=== PATIENT | female | born 1985 | race Caucasian/White ===

== ENCOUNTER 2018-01-24 09:50 | Inpatient (IN) | payer MEDICAID ==
[2018-01-24 10:40] LABS: ADD UMIC YES; UR ASCORBIC ACID NEGATIVE (NEGATIVE); UR BACTERIA FEW /HPF (NONE SEEN); UR BILIRUBIN (Dip) NEGATIVE (NEGATIVE); UR BLOOD (Dip) 1+ mg/dL (NEGATIVE); UR CLARITY SLIGHTLY CLOUDY (CLEAR); UR COLOR YELLOW (YELLOW); UR GLUCOSE (Dip) NEGATIVE (NEGATIVE); UR KETONES (Dip) 1+ mg/dL (NEGATIVE); UR LEUKOCYTE ESTERASE (Dip) 2+ Leu/ul (NEGATIVE); UR MUCUS FEW /HPF (NONE SEEN); UR NITRITE (Dip) NEGATIVE (NEGATIVE); UR RBC 14 /HPF (0-5); UR SPECIFIC GRAVITY (Dip) 1.015 (1.003-1.030); UR SQUAMOUS EPITHELIAL CELL FEW /HPF (FEW); UR TOTAL PROTEIN (Dip) NEGATIVE (NEGATIVE); UR UROBILINOGEN (Dip) NEGATIVE (NEGATIVE); UR WBC 37 /HPF (0-5)
[2018-01-24] MEDS: ONDANSETRON 4 MG INJ IV ×2 (11:58→18:09)
[2018-01-24] MEDS: LACTATED RINGER'S 1,000 ML IV ×2 (11:58→21:17)
[2018-01-24] MEDS: HYDROCODONE/APAP (5/325) TAB PO ×3 (11:58→23:17)
[2018-01-24] MEDS: CEFAZOLIN 1 GM/50 ML (PMX) 50 ML IVPB ×2 (12:29→21:17)
[2018-01-24 12:43] LABS: ADD MAN DIFF? NO
[2018-01-24 12:45] LABS: WHITE BLOOD COUNT 13.9 10^3/ul (4.8-10.8)
[2018-01-24 12:45] LABS: ABNORMAL IP MESSAGE 1; BASOPHILS % 0.1 % (0.0-2.0); HEMATOCRIT 33.8 % (37.0-47.0); HEMOGLOBIN 11.4 g/dl (12.0-16.0); LYMPHOCYTES # 0.5 10^3/ul (0.8-2.9); LYMPHOCYTES % 3.8 % (15.0-51.0); MEAN CORPUSCULAR HEMOGLOBIN 28.6 pg (29.0-33.0); MEAN CORPUSCULAR HGB CONC 33.7 g/dl (32.0-37.0); MEAN CORPUSCULAR VOLUME 84.7 fl (82.0-101.0); MEAN PLATELET VOLUME 11.8 fl (7.4-10.4); MONOCYTE # 0.6 10^3/ul (0.3-0.9); MONOCYTES % 4.3 % (0.0-11.0); NEUTROPHIL # 12.7 10^3/ul (1.6-7.5); NEUTROPHILS % 91.4 % (39.0-77.0); PLATELET COUNT 186 10^3/UL (140-415); RED BLOOD COUNT 3.99 10^6/ul (4.20-5.40); RED CELL DISTRIBUTION WIDTH 13.3 % (11.5-14.5)
[2018-01-24 12:50] LABS: POSITIVE DIFF @See below
[2018-01-24] MEDS ORDERED: CEFAZOLIN 1 GM/50 ML (PMX) 50 ML IV ×2 (14:00)
[2018-01-24] MEDS ORDERED: FAMOTIDINE 20 MG INJ IV (14:30)
[2018-01-24] MEDS: AL HYDROX/MG HYDROX/SIMETH 30 ML CUP PO (15:14)
[2018-01-24] MEDS: LACTATED RINGER'S 500 ML IV (15:27)
[2018-01-24] MEDS: ACETAMINOPHEN 325 MG TAB PO (15:37)
[2018-01-24] MEDS: FAMOTIDINE 20 MG INJ IV (21:17)
[2018-01-25] MEDS: LACTATED RINGER'S 1,000 ML IV ×4 (03:40→20:59)
[2018-01-25] MEDS: CEFAZOLIN 1 GM/50 ML (PMX) 50 ML IVPB ×3 (04:11→20:59)
[2018-01-25] MEDS: FAMOTIDINE 20 MG INJ IV ×2 (09:13→21:38)
[2018-01-25] MEDS: PRENATAL VITAMIN PO (09:13)
[2018-01-25] MEDS: ONDANSETRON 4 MG INJ IV (09:20)
[2018-01-25] MEDS: HYDROCODONE/APAP (5/325) TAB PO (09:23)
[2018-01-25] MEDS ORDERED: FLUCONAZOLE 100 MG TAB PO (22:30)
[2018-01-25] MEDS: ZINC OXIDE 13% (DESITIN) CREAM 2 OZ TUBE TOP (23:25)
[2018-01-25 23:31] LABS: ADD UMIC YES; UR ASCORBIC ACID NEGATIVE (NEGATIVE); UR BACTERIA FEW /HPF (NONE SEEN); UR BILIRUBIN (Dip) NEGATIVE (NEGATIVE); UR BLOOD (Dip) 1+ mg/dL (NEGATIVE); UR CLARITY CLEAR (CLEAR); UR COLOR YELLOW (YELLOW); UR GLUCOSE (Dip) NEGATIVE (NEGATIVE); UR KETONES (Dip) NEGATIVE (NEGATIVE); UR LEUKOCYTE ESTERASE (Dip) 3+ Leu/ul (NEGATIVE); UR NITRITE (Dip) NEGATIVE (NEGATIVE); UR RBC 4 /HPF (0-5); UR SQUAMOUS EPITHELIAL CELL FEW /HPF (FEW); UR TOTAL PROTEIN (Dip) NEGATIVE (NEGATIVE); UR UROBILINOGEN (Dip) NEGATIVE (NEGATIVE); UR WBC 13 /HPF (0-5)
[2018-01-26] MEDS: FLUCONAZOLE 150 MG TAB PO (04:20)
[2018-01-26] MEDS: LACTATED RINGER'S 1,000 ML IV ×3 (04:22→18:02)
[2018-01-26] MEDS: CEFAZOLIN 1 GM/50 ML (PMX) 50 ML IVPB ×3 (04:22→20:30)
[2018-01-26] MEDS: HYDROCODONE/APAP (5/325) TAB PO (04:27)
[2018-01-26] MEDS: AL HYDROX/MG HYDROX/SIMETH 30 ML CUP PO ×2 (05:25→15:02)
[2018-01-26] MEDS: ONDANSETRON 4 MG INJ IV ×2 (05:26→09:29)
[2018-01-26] MEDS: morphine 2 MG INJ IV (06:46)
[2018-01-26] MEDS: PRENATAL VITAMIN PO (09:24)
[2018-01-26] MEDS: FAMOTIDINE 20 MG INJ IV ×2 (09:24→21:07)
[2018-01-26] MEDS ORDERED: HYDROmorphONE 2 MG TAB PO (10:00)
[2018-01-26] MEDS: ACETAMINOPHEN 325 MG TAB PO ×2 (10:40→16:03)
[2018-01-26] MEDS: HYDROmorphONE 2 MG/ML SYG IV (11:07)
[2018-01-26] MEDS: METOCLOPRAMIDE 10 MG INJ IV (13:03)
[2018-01-26] MEDS: CEFAZOLIN 2 GM/50 ML (PMX) 50 ML IVPB ×2 (13:03→21:11)
[2018-01-26] MEDS: MAGNESIUM HYDROXIDE 30ML CUP PO (19:00)
[2018-01-27] MEDS: LACTATED RINGER'S 1,000 ML IV ×3 (01:41→18:28)
[2018-01-27] MEDS: CEFAZOLIN 1 GM/50 ML (PMX) 50 ML IVPB (03:34)
[2018-01-27] MEDS: CEFAZOLIN 2 GM/50 ML (PMX) 50 ML IVPB ×3 (04:39→20:58)
[2018-01-27] MEDS: HYDROCODONE/APAP (5/325) TAB PO ×2 (04:46→23:16)
[2018-01-27] MEDS: METOCLOPRAMIDE 10 MG INJ IV ×2 (05:30→18:30)
[2018-01-27] MEDS ORDERED: HYDROmorphONE 0.5 MG/0.5 ML SYG IV (06:37)
[2018-01-27 06:43] LABS: ADD UMIC YES; UR ASCORBIC ACID NEGATIVE (NEGATIVE); UR BACTERIA FEW /HPF (NONE SEEN); UR BILIRUBIN (Dip) NEGATIVE (NEGATIVE); UR BLOOD (Dip) 2+ mg/dL (NEGATIVE); UR CLARITY CLEAR (CLEAR); UR COLOR YELLOW (YELLOW); UR GLUCOSE (Dip) NEGATIVE (NEGATIVE); UR KETONES (Dip) NEGATIVE (NEGATIVE); UR LEUKOCYTE ESTERASE (Dip) 3+ Leu/ul (NEGATIVE); UR NITRITE (Dip) NEGATIVE (NEGATIVE); UR RBC 2 /HPF (0-5); UR SPECIFIC GRAVITY (Dip) 1.005 (1.003-1.030); UR SQUAMOUS EPITHELIAL CELL FEW /HPF (FEW); UR TOTAL PROTEIN (Dip) NEGATIVE (NEGATIVE); UR UROBILINOGEN (Dip) NEGATIVE (NEGATIVE); UR WBC 32 /HPF (0-5)
[2018-01-27] MEDS: HYDROmorphONE 2 MG/ML SYG IV (07:01)
[2018-01-27] MEDS: FAMOTIDINE 20 MG INJ IV ×2 (09:04→21:37)
[2018-01-27] MEDS: PRENATAL VITAMIN PO (09:04)
[2018-01-27] MEDS: SENNA TAB PO ×2 (09:04→21:37)
[2018-01-27] MEDS: HYDROmorphONE 0.5 MG/0.5 ML SYG IV (09:06)
[2018-01-27 16:59] LABS: ADD UMIC NO; UR ASCORBIC ACID NEGATIVE (NEGATIVE); UR BILIRUBIN (Dip) NEGATIVE (NEGATIVE); UR BLOOD (Dip) NEGATIVE (NEGATIVE); UR CLARITY CLEAR (CLEAR); UR COLOR YELLOW (YELLOW); UR GLUCOSE (Dip) NEGATIVE (NEGATIVE); UR KETONES (Dip) NEGATIVE (NEGATIVE); UR LEUKOCYTE ESTERASE (Dip) NEGATIVE Leu/ul (NEGATIVE); UR NITRITE (Dip) NEGATIVE (NEGATIVE); UR SPECIFIC GRAVITY (Dip) 1.009 (1.003-1.030); UR TOTAL PROTEIN (Dip) NEGATIVE (NEGATIVE); UR UROBILINOGEN (Dip) NEGATIVE (NEGATIVE)
[2018-01-27 20:17] LABS: ADD MAN DIFF? NO; BASOPHILS % 0.4 % (0.0-2.0); EOSINOPHILS % 0.4 % (0.0-7.0); HEMATOCRIT 31.9 % (37.0-47.0); HEMOGLOBIN 10.5 g/dl (12.0-16.0); MEAN CORPUSCULAR HEMOGLOBIN 28.2 pg (29.0-33.0); MEAN CORPUSCULAR HGB CONC 32.9 g/dl (32.0-37.0); MEAN CORPUSCULAR VOLUME 85.5 fl (82.0-101.0); MEAN PLATELET VOLUME 11.4 fl (7.4-10.4); MONOCYTE # 0.3 10^3/ul (0.3-0.9); MONOCYTES % 3.5 % (0.0-11.0); NEUTROPHIL # 5.8 10^3/ul (1.6-7.5); NEUTROPHILS % 81.1 % (39.0-77.0); PLATELET COUNT 140 10^3/UL (140-415); RED BLOOD COUNT 3.73 10^6/ul (4.20-5.40); RED CELL DISTRIBUTION WIDTH 13.4 % (11.5-14.5)
[2018-01-27 20:17] LABS: WHITE BLOOD COUNT 7.1 10^3/ul (4.8-10.8)
[2018-01-27 20:36] LABS: ALANINE AMINOTRANSFERASE 17 IU/L (13-69); ALBUMIN 2.6 g/dl (3.3-4.9); ALBUMIN/GLOBULIN RATIO 0.89; ALKALINE PHOSPHATASE 117 IU/L (42-121); ANION GAP 10 (8-16); ASPARTATE AMINO TRANSFERASE 19 IU/L (15-46); BILIRUBIN,INDIRECT 0.4 mg/dl (0-1.1); BILIRUBIN,TOTAL 0.4 mg/dl (0.2-1.3); BLOOD UREA NITROGEN 11 mg/dl (7-20); CALCIUM 8.2 mg/dl (8.4-10.2); CARBON DIOXIDE 22 mmol/L (21-31); CHLORIDE 107 mmol/L (97-110); CREATININE 1.15 mg/dl (0.44-1.00); GLUCOSE 94 mg/dl (70-220); POTASSIUM 3.8 mmol/L (3.5-5.1); SODIUM 135 mmol/L (135-144); TOTAL PROTEIN 5.5 g/dl (6.1-8.1)
[2018-01-28] MEDS: LACTATED RINGER'S 1,000 ML IV (03:03)
[2018-01-28] MEDS: CEFAZOLIN 2 GM/50 ML (PMX) 50 ML IVPB (04:59)
[2018-01-28] MEDS: SENNA TAB PO ×2 (09:00→21:31)
[2018-01-28] MEDS: FAMOTIDINE 20 MG INJ IV ×2 (09:00→21:30)
[2018-01-28] MEDS: PRENATAL VITAMIN PO (09:00)
[2018-01-28] MEDS: SOD CHLORIDE 0.9% 1,000 ML IV ×2 (10:03→19:34)
[2018-01-28] MEDS: MAGNESIUM HYDROXIDE 30ML CUP PO (10:04)
[2018-01-28] MEDS: ACETAMINOPHEN 325 MG TAB PO ×3 (10:04→19:34)
[2018-01-28] MEDS: ONDANSETRON 4 MG INJ IV (10:04)
[2018-01-28] MEDS: METOCLOPRAMIDE 10 MG INJ IV (10:04)
[2018-01-28] MEDS: GENTAMICIN 80 MG/NS (PMX) 50 ML IVPB ×2 (10:04→18:02)
[2018-01-28] MEDS: CEFTRIAXONE 2 GM/50 ML (PMX) 50 ML IVPB (11:11)
[2018-01-29] MEDS: GENTAMICIN 80 MG/NS (PMX) 50 ML IVPB ×3 (02:02→18:18)
[2018-01-29] MEDS: SOD CHLORIDE 0.9% 1,000 ML IV ×3 (03:42→20:55)
[2018-01-29] MEDS: MAGNESIUM HYDROXIDE 30ML CUP PO (04:03)
[2018-01-29] MEDS: ACETAMINOPHEN 325 MG TAB PO ×3 (05:02→23:05)
[2018-01-29] MEDS: SENNA TAB PO ×2 (08:29→20:55)
[2018-01-29] MEDS: PRENATAL VITAMIN PO (08:29)
[2018-01-29] MEDS: FAMOTIDINE 20 MG INJ IV ×2 (08:29→20:55)
[2018-01-29] MEDS: ONDANSETRON 4 MG INJ IV (08:30)
[2018-01-29 11:00] LABS: ADD MAN DIFF? NO
[2018-01-29 11:02] LABS: BASOPHILS % 0.5 % (0.0-2.0); EOSINOPHILS % 0.2 % (0.0-7.0); HEMATOCRIT 32.7 % (37.0-47.0); HEMOGLOBIN 10.8 g/dl (12.0-16.0); LYMPHOCYTES # 1.1 10^3/ul (0.8-2.9); LYMPHOCYTES % 17.5 % (15.0-51.0); MEAN CORPUSCULAR HEMOGLOBIN 27.6 pg (29.0-33.0); MEAN CORPUSCULAR VOLUME 83.4 fl (82.0-101.0); MEAN PLATELET VOLUME 11.9 fl (7.4-10.4); MONOCYTE # 0.3 10^3/ul (0.3-0.9); MONOCYTES % 4.9 % (0.0-11.0); NEUTROPHIL # 4.8 10^3/ul (1.6-7.5); NEUTROPHILS % 75.8 % (39.0-77.0); PLATELET COUNT 152 10^3/UL (140-415); RED BLOOD COUNT 3.92 10^6/ul (4.20-5.40); RED CELL DISTRIBUTION WIDTH 13.3 % (11.5-14.5)
[2018-01-29 11:02] LABS: WHITE BLOOD COUNT 6.4 10^3/ul (4.8-10.8)
[2018-01-29] MEDS: CEFTRIAXONE 2 GM/50 ML (PMX) 50 ML IVPB (11:05)
[2018-01-29 11:26] LABS: ANION GAP 10 (8-16); BLOOD UREA NITROGEN 10 mg/dl (7-20); CALCIUM 7.9 mg/dl (8.4-10.2); CARBON DIOXIDE 22 mmol/L (21-31); CHLORIDE 109 mmol/L (97-110); CREATININE 1.05 mg/dl (0.44-1.00); GLUCOSE 93 mg/dl (70-220); MAGNESIUM 1.9 mg/dl (1.7-2.5); PHOSPHORUS 3.6 mg/dl (2.5-4.9); POTASSIUM 3.8 mmol/L (3.5-5.1); SODIUM 137 mmol/L (135-144)
[2018-01-30] MEDS: SOD CHLORIDE 0.9% 1,000 ML IV ×3 (01:30→12:36)
[2018-01-30] MEDS: GENTAMICIN 80 MG/NS (PMX) 50 ML IVPB ×2 (01:50→09:36)
[2018-01-30] MEDS: AL HYDROX/MG HYDROX/SIMETH 30 ML CUP PO (07:54)
[2018-01-30] MEDS: PRENATAL VITAMIN PO (08:30)
[2018-01-30] MEDS: SENNA TAB PO ×2 (08:30→21:00)
[2018-01-30] MEDS: FAMOTIDINE 20 MG INJ IV ×2 (08:30→21:24)
[2018-01-30 09:21] LABS: ALBUMIN 2.5 g/dl (3.3-4.9); ANION GAP 7 (8-16); BLOOD UREA NITROGEN 7 mg/dl (7-20); CALCIUM 7.9 mg/dl (8.4-10.2); CARBON DIOXIDE 23 mmol/L (21-31); CHLORIDE 111 mmol/L (97-110); GLUCOSE 76 mg/dl (70-220); MAGNESIUM 1.8 mg/dl (1.7-2.5); PHOSPHORUS 3.3 mg/dl (2.5-4.9); POTASSIUM 4.3 mmol/L (3.5-5.1); SODIUM 137 mmol/L (135-144)
[2018-01-30] MEDS: CEFTRIAXONE 2 GM/50 ML (PMX) 50 ML IVPB (12:33)
[2018-01-31] MEDS: ONDANSETRON 4 MG INJ IV (04:33)
[2018-01-31 05:18] LABS: ADD UMIC NO; UR ASCORBIC ACID NEGATIVE (NEGATIVE); UR BILIRUBIN (Dip) NEGATIVE (NEGATIVE); UR BLOOD (Dip) NEGATIVE (NEGATIVE); UR CLARITY CLEAR (CLEAR); UR COLOR STRAW (YELLOW); UR GLUCOSE (Dip) NEGATIVE (NEGATIVE); UR KETONES (Dip) NEGATIVE (NEGATIVE); UR LEUKOCYTE ESTERASE (Dip) NEGATIVE Leu/ul (NEGATIVE); UR NITRITE (Dip) NEGATIVE (NEGATIVE); UR SPECIFIC GRAVITY (Dip) 1.009 (1.003-1.030); UR TOTAL PROTEIN (Dip) NEGATIVE (NEGATIVE); UR UROBILINOGEN (Dip) NEGATIVE (NEGATIVE)
[2018-01-31] MEDS: FAMOTIDINE 20 MG INJ IV (08:34)
[2018-01-31] MEDS: AL HYDROX/MG HYDROX/SIMETH 30 ML CUP PO (08:34)
[2018-01-31] MEDS: PRENATAL VITAMIN PO (08:35)
[2018-01-31] MEDS: SENNA TAB PO (08:35)
[2018-01-31] MEDS: CEFTRIAXONE 2 GM/50 ML (PMX) 50 ML IVPB (10:33)
== END 2018-01-31 18:19 | disposition home or self-care (01) | DRG 781 ==
LOC: OBT 09:50 → L-D 09:50 → PP1 01-25 18:01 → OBT 10:50 → PP1 10:50
DX: O23.03 Infections of kidney in pregnancy, third trimester (principal); N13.30 Unspecified hydronephrosis; O99.89 Other specified diseases and conditions complicating pregnancy, childbirth and the puerperium; Z3A.38 38 weeks gestation of pregnancy
CPT/HCPCS: 76705; 76775; 76818; 80048; 80053; 80069; 81001; 81003; 83735; 84100; 85025; 87086

== ENCOUNTER 2018-02-02 06:00 | Inpatient (IN) | payer MEDICAID ==
[2018-02-02] MEDS ORDERED: LACTATED RINGER'S 1,000 ML IV (06:50)
[2018-02-02] MEDS ORDERED: LIDOCAINE 1% (MPF) 30 ML INJ INJ (07:00)
[2018-02-02] MEDS ORDERED: METHYLERGONOVINE 0.2 MG INJ IM ×2 (07:00→17:30)
[2018-02-02] MEDS ORDERED: CARBOPROST 250 MCG INJ IM ×2 (07:00→17:30)
[2018-02-02] MEDS ORDERED: OXYTOCIN 30 UNITS/LR 500 ML IV ×2 (07:00→17:30)
[2018-02-02] MEDS ORDERED: BUTORPHANOL 2 MG INJ IV (07:00)
[2018-02-02] MEDS ORDERED: MISOPROSTOL 200 MCG TAB PR ×2 (07:00→17:30)
[2018-02-02] MEDS: LACTATED RINGER'S 1,000 ML IV* ×2 (08:11→13:22)
[2018-02-02 08:22] LABS: ADD MAN DIFF? NO
[2018-02-02 08:26] LABS: WHITE BLOOD COUNT 10.1 10^3/ul (4.8-10.8)
[2018-02-02 08:26] LABS: BASOPHILS % 0.1 % (0.0-2.0); EOSINOPHILS % 0.4 % (0.0-7.0); HEMOGLOBIN 11.3 g/dl (12.0-16.0); LYMPHOCYTES # 1.7 10^3/ul (0.8-2.9); MEAN CORPUSCULAR HGB CONC 33.2 g/dl (32.0-37.0); MEAN CORPUSCULAR VOLUME 84.4 fl (82.0-101.0); MEAN PLATELET VOLUME 11.4 fl (7.4-10.4); MONOCYTE # 0.3 10^3/ul (0.3-0.9); MONOCYTES % 2.7 % (0.0-11.0); PLATELET COUNT 218 10^3/UL (140-415); RED BLOOD COUNT 4.03 10^6/ul (4.20-5.40); RED CELL DISTRIBUTION WIDTH 13.3 % (11.5-14.5)
[2018-02-02 08:47] LABS: INR 0.81; PROTIME 11.2 Sec (11.9-14.9); PT RATIO 0.9
[2018-02-02 08:48] LABS: PARTIAL THROMBOPLASTIN TIME 26.2 Sec (25.0-35.0)
[2018-02-02] MEDS: FAMOTIDINE 20 MG INJ IV (09:41)
[2018-02-02] MEDS: CEFAZOLIN 2 GM/50 ML (PMX) 50 ML IVPB (10:26)
[2018-02-02] MEDS: OXYTOCIN 30 UNITS/LR 500 ML IV ×3 (13:35→16:01)
[2018-02-02 15:11] LABS: RAPID PLASMA REAGIN NONREACTIVE (NR)
[2018-02-02] MEDS ORDERED: CEPHALEXIN 500 MG CAP PO (16:30)
[2018-02-02] MEDS ORDERED: OXYCODONE/ASPIRIN (4.88/325) TAB PO (17:30)
[2018-02-02] MEDS ORDERED: ZOLPIDEM 5 MG TAB PO (17:30)
[2018-02-02] MEDS: WITCH HAZEL/GLYCERIN PAD PR (20:02)
[2018-02-02] MEDS: LANOLIN 7 GM TUBE TOP (20:02)
[2018-02-02] MEDS: ACETAMINOPHEN 325 MG TAB PO (20:02)
[2018-02-02] MEDS: BENZOCAINE 20% 56 ML SPRAY TOP (20:03)
[2018-02-02] MEDS: SENNA/DOCUSATE NA (8.6MG/50MG) TAB PO (21:31)
[2018-02-02] MEDS: CEPHALEXIN 500 MG CAP PO (21:31)
[2018-02-02] MEDS ORDERED: CEFAZOLIN 2 GM/50 ML (PMX) 50 ML IVPB (22:00)
[2018-02-03] MEDS: CEPHALEXIN 500 MG CAP PO ×3 (05:42→21:55)
[2018-02-03 08:09] LABS: ADD MAN DIFF? NO
[2018-02-03 08:14] LABS: BASOPHIL # 0.1 10^3/ul (0.0-0.1); BASOPHILS % 0.5 % (0.0-2.0); EOSINOPHILS % 0.2 % (0.0-7.0); HEMATOCRIT 34.3 % (37.0-47.0); HEMOGLOBIN 11.3 g/dl (12.0-16.0); LYMPHOCYTES # 1.7 10^3/ul (0.8-2.9); LYMPHOCYTES % 17.2 % (15.0-51.0); MEAN CORPUSCULAR HEMOGLOBIN 28.5 pg (29.0-33.0); MEAN CORPUSCULAR HGB CONC 32.9 g/dl (32.0-37.0); MEAN CORPUSCULAR VOLUME 86.4 fl (82.0-101.0); MEAN PLATELET VOLUME 11.9 fl (7.4-10.4); MONOCYTE # 0.2 10^3/ul (0.3-0.9); MONOCYTES % 2.4 % (0.0-11.0); NEUTROPHILS % 79.3 % (39.0-77.0); PLATELET COUNT 220 10^3/UL (140-415); RED BLOOD COUNT 3.97 10^6/ul (4.20-5.40); RED CELL DISTRIBUTION WIDTH 13.7 % (11.5-14.5)
[2018-02-03 08:14] LABS: WHITE BLOOD COUNT 10.1 10^3/ul (4.8-10.8)
[2018-02-03] MEDS: SENNA/DOCUSATE NA (8.6MG/50MG) TAB PO ×2 (09:55→21:55)
[2018-02-04] MEDS: CEPHALEXIN 500 MG CAP PO (05:32)
[2018-02-04] MEDS: SENNA/DOCUSATE NA (8.6MG/50MG) TAB PO (10:47)
[2018-02-04] MEDS: DIPHTH/TET/ACEL PERTUSS (ADULT) 0.5 ML VIAL IM* (10:49)
[2018-02-04] MEDS: ACETAMINOPHEN 500 MG TAB PO (10:56)
== END 2018-02-04 16:45 | disposition home or self-care (01) | DRG 775 ==
LOC: OBT 06:00 → L-D 06:00 → OBT 06:50 → L-D 07:22 → PP1 16:09
PROVIDERS: Obstetrics & Gynecology
PROC: 10E0XZZ Delivery of Products of Conception, External Approach (ICD-10-PCS; principal; 2018-02-02)
DX: O80 Encounter for full-term uncomplicated delivery (principal); Z3A.38 38 weeks gestation of pregnancy; Z37.0 Single live birth
CPT/HCPCS: 85025; 85610; 85730; 86592; 86850; 86900; 86901; 90715